=== PATIENT | male | born 2005 | race Caucasian/White ===

== ENCOUNTER 2024-07-29 20:56 | Emergency (ER) | payer BC, OTHER ==
[~2024-07-29] VITALS: Ht 190.5 cm; Wt 75.5 kg
[2024-07-30] MEDS ORDERED: AUG875T PO (01:50)
--- NOTE | 2024-07-30 01:50 | ED.PDOC ---
HPI Comments C/C of laceration to left first digit. Pt states he accidentally cut thumb with kitchen knife while cooking, today at 2044. Noted 2.5cm laceration, moderate amount of serous bleeding. Bleeding controlled. Denies any thinners. VSS. NKDA Chief Complaint: Laceration Time Seen by MD: 21:10 Primary Care Provider: SAURAV Cruz Notes: Nurses Notes, Medications, Allergies Allergies: Coded Allergies: NO KNOWN ALLERGIES (Unverified , 12/26/13) Home Meds Active Scripts Amoxicillin & Pot Clavulanate (AUGMENTIN TABLET) 875 Mg Tb, 875 MG PO BID for 5 Days, #10 TAB Prov:JOHN MEDELLIN HOME MANAGER 07/30/24 Information Source: Patient Mode of Arrival: Ambulatory Complexity: Intermediate Laceration Length (cm): 2 Past Medical History PAST MEDICAL HISTORY: Denies Surgical History: Denies all surgeries Family History Family History: Reviewed,noncontributory to illness, Unknown Social History Smoker: Non-Smoker Alcohol: Denies ETOH Use Drugs: Denies Drug Use Lives In: Home Constitutional: denies: chills, diaphoresis, fatigue, fever, malaise, sweats, weakness, others EENTM: denies: blurred vision, double vision, ear bleeding, ear discharge, ear drainage, ear pain, ear ringing, eye pain, eye redness, hearing loss, mouth pain, mouth swelling, nasal discharge, nose bleeding, nose congestion, nose pa in, photophobia, tearing, throat pain, throat swelling, voice changes, others Cardiovascular: denies: chest pain, dizzy spells, diaphoresis, Dyspnea on exertion, edema, irregular heart beat, left arm pain, lightheadedness, palpitations, PND, syncope, others Gastrointestinal: denies: abdomen distended, abdominal pain, blood streaked bowels, constipated, diarrhea, dysphagia, difficulty swallowing, hematemesis, melena, nausea, poor appetite, poor fluid intake, rectal bleeding, rectal pain, vomiting, others Genitourinary: denies: burning, dysuria, flank pain, frequency, hematuria, incontinence, penile discharge, penile sore, pain, testicle pain, testicle swelling, urgency, others Neurological: denies: dizziness, fainting, headache, left sided numbness, left sided weakness, numbness, paresthesia, pre-existing deficit, right sided numbness, right sided weakness, seizure, speech problems, tingling, tremors, weakness, others Musculoskeletal: denies: back pain, gout, joint pain, joint swelling, muscle pain, muscle stiffness, neck pain, others Integumetry: reports: laceration (Thumb); denies: bruises, change in color, c hange in hair/nails, dryness, lesions, lumps, rash, wounds, others Allergic/Immunocompromised: denies: Difficulty Healing, Frequent Infections, Hives, Itching, others Hematologic/Lymphatic: denies: anemia, blood clots, easy bleeding, easy bruising, swollen glands, others Endocrine: denies: excessive hunger, excessive sweating, excessive thirst, excessive urination, flushing, intolerance to cold, intolerance to heat, unexplained weight gain, unexplained weight loss, others Psychiatric: denies: anxiety, bipolar disorder, depression, hopeless, panic disorder, schizophrenia, sleepless, suicidal, others Physical Exam General Appearance: No Apparent Distress, Normal HEENT: Pharynx Normal Neck: Full Range of Motion, Non-Tender Respiratory: Lungs Clear, No Respiratory Distress, Normal Breath Sounds Cardiovascular: No Murmur, Normal Peripheral Pulses, Regular Rate/Rhythm Breast Exam: Deferred Gastrointestinal: Non Tender, Soft Genitalia: Deferred Pelvic: Deferred Rectal: Deferred Extremities: Normal capillary refill, Normal range of motion Musculoskeletal : Apperance: Normal Neurologic: Alert, No Motor Deficits, Normal Affect, Normal Mood, No Sensory Deficits Cerebellar Function: Normal Reflexes: Normal Skin: Dry, Lacerations (0.5 cm flap laceration to left thumb lateral aspect bleeding controlled nail intact no damage no obvious foreign body strength sensory motion intact cap refill less than 3 seconds), Normal Color, Warm Lymphatic: No Adenopathy Was a procedure done? Was a procedure done?: Yes Sedation Sedation?: No Informed consent obtained: Yes Laceration Repair : Location Left lateral thumb Length 2.5 cm Anesthetic: Lidocaine, Without epi Laceration Repair Prep: Saline Laceration Repair Wound Comple: epidermis/dermis repair Laceration Repair: Number of sutures (5), Simple Informed consent obtained: Yes Risks, benefits, and alternati: Yes Notes Patient tolerated well with minimal blood loss Differential diagnosis Generic Laceration: Hematoma, Fracture, Retained Foriegn Body, Neurovascular Injury, Tendon Injury, Abrasion/Contusion, Avulsion X-Ray, Labs, Meds, VS Vital Signs Date Time Temp Pulse Resp B/P (MAP) Pulse Ox O2 Delivery O2 Flow Rate FiO2 07/29/24 20:58 98.7 69 16 122/69 (86) 100 98.7 X-Ray, Labs, Meds, VS Comment See procedure note Script prophylactic antibiotics to the pharmacy advised take medication as prescribed side effects discussed. Suture removal in 5-7 days. Follow up with PCP in 2-3 days for wound re-evaluation. ER return precautions given patient indicates understanding agrees with discharge plan of care. Time of 1ST Reevaluation: 21:10 Reevaluation 1ST: Unchanged Time of 2ND Reevaluation: 01:47 Reevaluation 2ND: Improved Patient Education/Counseling: Diagnosis, Treatment, Prognosis, Need For Follow Up Family Education/Counseling: Diagnosis, Treatment, Prognosis, Need For Follow Up Departure 1 Departure Time of Disposition: 01:46 Impression: Primary Impression: Laceration of thumb without damage to nail Qualified Codes: S61.011A - Laceration without foreign body of right thumb without damage to nail, initial encounter Disposition: 01 HOME / SELF CARE / HOMELESS Condition: Stable e-Prescriptions Amoxicillin & Pot Clavulanate (AUGMENTIN TABLET) 875 Mg Tb 875 MG PO BID for 5 Days, #10 TAB Prov: JOHN MEDELLIN 07/30/24 Discharged With: Relative (Mother) Critical Care Note Critical Care Time?: No Stability Stability form required: JOHN Dowling Jul 30, 2024 01:50
[2024-07-30 02:03] VITALS: BP 122/69; PULSE 69; RESP 16; TEMP 98.7; O2SAT 100
== END 2024-07-30 02:05 | disposition home or self-care (01) ==
LOC: ER 20:56
DX: S61.011A Laceration without foreign body of right thumb without damage to nail, initial encounter (principal); Z79.899 Other long term (current) drug therapy; W26.0XXA Contact with knife, initial encounter; Y93.G3 Activity, cooking and baking; Y92.090 Kitchen in other non-institutional residence as the place of occurrence of the external cause; Y99.8 Other external cause status
CPT/HCPCS: 12001